=== PATIENT | female | born 1955 | race Two or more races ===

== ENCOUNTER 2025-01-05 06:11 | Inpatient (IN) | payer BC, MEDICARE ==
[~2025-01-05] VITALS: Ht 154.9 cm; Wt 91.3 kg
[~2025-01-05 06:11] MED LIST: AML5T PO; ASPI81CH59 PO; CHOL20007 PO; CLON0.2T TOP; DOCU-94 PO; FENO145T27 PO; LOSA100T14 PO; MAGN1CAP2 PO; METO-289 PO; PERCOT PO; TIZA4CAP PO; TURM1TAB PO
--- NOTE | 2025-01-05 07:18 | DVHHP2 ---
History Allergies: Coded Allergies: Codeine (Unverified Adverse Reaction, Unknown, depression , 01/01/25) Chief Complaint: Low back pain with radiation and shooting pain down the legs left greater than right Present Illness(Onset/Duration Patient has low back pain for several years impacting her activities of daily living ability to stand sit or walk for any extended period of time. Noncontributory Past Surgical History: Other (Knee replacement) Exam Exam General Appearance: Normal, Obese HEENT: Normal ENT Inspection Neck: None, Non-Tender, Normal, Normal Inspection Respiratory: No Accessory Muscle Use, None, No Respiratory Distress Cardiovascular: No Edema, No JVD, Other (Skin is pink warm and dry) Gastrointestinal: Other (No complaints of nausea vomiting or diarrhea) Extremities: Normal capillary refill, Normal inspection, Normal range of motion, Non-tender, Other (Leg pain originating from the low back) Neurologic: Alert, No Motor Deficits, Normal Affect, Normal Mood Cerebellar Function: Normal Reflexes: Normal Skin: Normal Color Plan Additional comments: Patient arrives today for elective spine surgery with Dr Cosme Varela lumbar 3- 5 posterior spinal decompression and fusion with lumbar 3-4, 4-5 interbody with peek cage and instrumentation Patient is agreeable to receive blood and emergency basis if she needs it The risks/benefits/alternatives of surgery were explained to the patient in detail including but not limited to , stroke, paralysis, myocardial infarction, bleeding, infection, complications of anesthesia (dry mouth, sore throat, dental damage, respiratory depression, blindness), postoperative infection, incomplete relief of symptoms, recurrence of symptoms, damage to blood vessels, nerves and tendons, pulmonary embolism and possible need for repeat surgery in the future. Pain, damage to surrounding soft tissue structures, need for reoperation or future surgery, persistent pain/disability/deformity, bone graft collapse or extrusion of interbody device, instrumentation failure, need for instrumentation removal, dural tear, temporary or permanent nerve root damage, deep vein thrombosis, pulmonary embolism, were described to the patient in detail and the patient wishes to proceed. No guarantee of surgical outcome/improvement was implied. All of the questions were answered thoroughly and consents were obtained. Call with questions Benedicto Narvaez [facility] Orthopaedic Spine Surgery nurse practitioner For Dr Stefany Varela Patient was examined, chart reviewed, labs evaluated, and diagnostic studies and findings analyzed. Case was discussed with Dr. Cosme Varela who formulated the plan of care. This medical document was created using an electronic medical record system with [employer] computerized dictation system. Although this document has been carefully reviewed, there might still be some phonetic and typographical errors. These areas are purely typographical due to imperfections of the software programs, and do not reflect any compromise in the patient's medical care. TRISTEN NARVAEZ NP Jan 05, 2025 07:18
[2025-01-05] MEDS ORDERED: MIDAZOLAM HCL 2MG/2ML 2ml VIAL (1mg/ml) ONE (07:22)
[2025-01-05] MEDS ORDERED: fentaNYL CITRATE 100 MCG/2 ML VL ONE (07:22)
[2025-01-05] MEDS ORDERED: METOCLOPRAMIDE HCL 5MG/ml INJ 2ml VIAL ONE (07:22)
[2025-01-05] MEDS ORDERED: LIDOCAINE 1% INJ PF 5ML AMP ONE (07:22)
[2025-01-05] MEDS ORDERED: ONDANSETRON HCL 4 MG/2 ML VIAL ONE (07:22)
[2025-01-05] MEDS ORDERED: ROCURONIUM 10MG/ML 10ML VIAL IV ONE (07:23)
[2025-01-05] MEDS ORDERED: PROPOFOL 10 MG/ML 20 ML IV ONE ×4 (07:23→10:30)
[2025-01-05] MEDS ORDERED: fentaNYL CITRATE 5 ML ONE (08:44)
[2025-01-05] MEDS ORDERED: SUGAMMADEX 200mg/2ml Vial (100MG/ML) IV ONE (11:07)
[2025-01-05] MEDS ORDERED: HYDROmorphone HCL 2 MG/ML VL/or syr ONE (11:12)
--- NOTE | 2025-01-05 11:47 | DVHOP2 ---
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 These include but are not limited to complications of anesthesia, postoperative infection, incomplete relief of symptoms, recurrence of symptoms, damage to blood vessels, nerves and tendons, deep venous thrombosis, pulmonary embolism and possible need for repeat surgery in the future. Name of Procedure Performed see detailed note Procedure Details Procedure Details: Pre-op Diagnosis: Lumbar Degenerative Disk Disease and Lumbar Spinal Stenosis causing Incapacitating back pain, radiculopathy and progressive neurologic deficit Post-op Diagnosis: Lumbar Degenerative Disk Disease and Lumbar Spinal Stenosis causing Incapacitating back pain, radiculopathy and progressive neurologic deficit Procedure: Lumbar 5 laminectomy with Lumbar 5 foraminotomies and facetectomies to decompress central canal and Lumbar 5 nerve roots Lumbar 4 laminectomy with Lumbar 4 foraminotomies and facetectomies to decompress central canal and Lumbar 4 nerve roots Lumbar 3 laminectomy with Lumbar 3 foraminotomies and facetectomies to decompress central canal and Lumbar 4 nerve roots Lumbar 3 to 5 posterior spinal inter transverse fusion Lumbar 4 to 5 posterior spinal interbody fusion with PEEK cage Lumbar 3 to 5 posterior spinal instrumentation with pedicle screws Local Bone Autograft For Fusion Allograft Bone Substitute to augment Fusion Microscope For Microdissection Surgeon: Cosme Varela MD Assist: FACUNDO Lindquist Anesthesia: General Fluids and EBL: See anesthesia note Patient was seen in the Pre Anesthesia Care Unit (PACU) and the operative site was initialed by me. All questions were answered to the patients satisfaction and chart reviewed. The patient was taken to the operative room where pre-ope rative antibiotics were given 30 minutes prior to incision. General anesthesia was induced and neuro-monitoring leads placed. Tyler catheter was placed. The patient was turned prone onto the [facility] spinal table. While positioning, I made sure that the belly was free to allow proper expansion of the lungs. The hips were extended and all bony prominences padded. The shoulders were abducted 80 degree and the elbows flexed 100 degrees with no tension on the brachial plexus. I check the foot arterial pulses and they were palpable. The patient was prepped and draped and time out was taken at this time per usual protocol. At this time, the C-arm fluoroscope was brought in and was used to eddi the incision borders proximally and distally. Using a Number 10 Blade, an incision was made extending it proximally and distally per C arm eddi from the posterior spinous process of lumbar 4,5 down to the lumbo-dorsal fascia. All bleeding was controlled with electrocautery. Self-retaining retractors were placed. Electrocautery was then used to take down the lumbo-dorsal fascia, to free the muscle off the bone bilaterally. A Torin retractor was placed over the posterior spinous process proximally and a lateral C-arm fluoroscope image was taken to insure we were at the correct level. Next, using bovie electro cautery, The deep fascia laterally to the facet joints was removed to expose the transverse processes of lumbar 3, 4 and 5 while taking care to avoid injuring the facet capsule at the proximal end of the incision. Next, the microscope was bought in for visualization and using a Luxell rongeur, the posterior spinous process of lumbar 3 and 4 and 5 bone were removed and the bone was saved for use as local autograft. I used alternating Kerison 2 mm and 3 mm rongeurs to perform central laminectomies lumbar 5 and 4 and 3 to decompress the central canal. Next using alternating Kerison 2mm and 3 mm rongeurs, the superior articular facets of lumbar 3, 4 and 5 were removed bilaterally to decompress the lateral recess (facetectomies) and then extended proximally to decompress the foramen bilaterally (foraminotomies). I used a ball tipped nerve probed to insure that the respective nerve roots were able to be mobilized 5mm in each direction were unimpeded in the lateral recess and foramen. Next I carefully inspected the dura to make sure no durotomy was visible and it was not. I retracted the right lumbar 5 nerve medially and used increasing size jose alberto until the proper size prepared and then inserted a [id number] PEEK cage in to the disc space at L4/5 using C arm fluoroscopy. I covered the exposed dura with gelfoam soaked in thrombin and the microscope was wheeled away from the operative filed. The C-arm fluoroscope was brought in and perfect AP views of the lumbar 4 and 5 pedicles were obtained. I placed bilateral pedicle screws at these levels by: using a Lenke awl to make a marine pilot hole, then a ball tip robe to make sure there was no pedicle breach, then a tap to prepare the track and a 6.5 mm diameter 45 mm length pedicle screw was placed bilaterally. This step to place bilateral pedicle screws was repeated up to the lumbar 3, 4 and 5 level. Next, the c-arm fluoroscope took an AP and lateral x-ray to ensure proper placement of the pedicle screws. Next, the neuro-stimulation probe was placed over the tip of each screw and each screw stimulated only after a current greater than 10 mA was delivered to the screw. Next , I took a Midas Karl Drill to decorticate the transverse process which were exposed and local bone graft, Bacterin allograft bone substitute and Demineralized bone matrix were placed along the inter transverse process intervals bilaterally (the fusion bed). Next a curved mikey sized to fit the pedicle screw interval was placed and secured to each pedicle screw using set screws, The set screws were tightened using a torque screwdriver (set to 10 N*M torque) to secure the mikey to the pedicle screws bilaterally. Final AP and lateral C arm fluoroscopic films were taken at this time. Next a 10 [place] diameter Hemovac drain was laced deep to the lumbo- dorsal fascia. The lumbo-dorsal fascia was closed with interrupted 0-Vicryl sutures. The subcutaneous tissue was closed with interrupted 2-0 Vicryl sutures. The skin was closed with running 2-0 nylon suture. Sterile dressings were place. The pt. was turned supine onto the stretcher, extubated and taken to the recovery room in stable condition. [id number] Condition Stable Disposition Still a Patient COSME VARELA MD Jan 05, 2025 11:47
[2025-01-05 11:57] VITALS: PULSE 56; RESP 15; O2SAT 96
[2025-01-05] MEDS ORDERED: NITROGLYCERIN 0.4 MG SL TAB SL PRN (12:00)
[2025-01-05] MEDS ORDERED: MORPHINE SULFATE INJ 2 MG/ml SYRG IV PRN (12:00)
[2025-01-05] MEDS ORDERED: ACETAMINOPHEN 325 MG TAB PO PRN (12:00)
[2025-01-05] MEDS ORDERED: hydrALAZINE HCL 20 MG/ML VL IV PRN (12:15)
[2025-01-05] MEDS: ACETAMINOPHEN IV 1000 MG/100ML (10MG/ML) IV ONE (12:26)
[2025-01-05] MEDS: HYDROmorphone HCL 2 MG/ML VL/or syr IV PRN (12:47)
[2025-01-05] MEDS: CYCLOBENZAPRINE HCL 10 MG TAB PO SCH (13:18)
[2025-01-05 14:58] VITALS: BP 146/88; PULSE 86; RESP 19; TEMP 97.9; O2SAT 94
[2025-01-05] MEDS: ceFAZolin 1GM/50ML 50 ML IV SCH (16:07)
[2025-01-05] MEDS: MORPHINE SULFATE INJ 2 MG/ml SYRG IV PRN (16:09)
[2025-01-05] MEDS: TRANEXAMIC ACID 20 ML ONE (16:12)
[2025-01-05] MEDS: ONDANSETRON HCL 4 MG/2 ML VIAL IV ONE (16:12)
[2025-01-05] MEDS: LIDOCAINE W/ EPINEPHRINE 1% 20ML VIAL ONE (16:12)
[2025-01-05] MEDS: ceFAZolin 2 GM/D5W50ml 50 ML IV ONE (16:12)
[2025-01-05] MEDS: D5W/SOD CHLO 0.9% 1,000 ML IV SCH (16:23)
[2025-01-05 16:30] VITALS: BP 146/88; PULSE 86; RESP 19; TEMP 97.9; O2SAT 94
[2025-01-05 17:36] VITALS: PULSE 89
[2025-01-05 20:00] VITALS: PULSE 57
[2025-01-05] MEDS: HYDROcodone-ACET 10/325MG TAB PO PRN (20:43)
[2025-01-05] MEDS: DOCUSATE SOD 100 MG CAP PO SCH (20:43)
[2025-01-05 21:00] VITALS: BP 109/61; PULSE 68; RESP 18; TEMP 98; O2SAT 97
[2025-01-06] VITALS (8 sets, daily range): BP systolic 104–146; BP diastolic 41–76; PULSE 20–90; RESP 16–18; TEMP 97–97.8; O2SAT 99–100
[2025-01-06] MEDS: METOPROLOL SUCCINATE XL 50 MG TAB PO SCH (08:32)
[2025-01-06] MEDS: LOSARTAN POTASSIUM 50 MG TAB PO SCH (08:32)
[2025-01-06] MEDS ORDERED: LOSARTAN POTASSIUM PO SCH (10:00)
--- NOTE | 2025-01-06 14:08 | DVHPN2 ---
Progress Note - Surgical Date Seen: Jan 06, 2025 Post op day Post op day: 1 Subjective Patient reports: No new complaints, Feels better (Intermittent improvement in preoperative symptoms, patient experiencing expected postoperative pain to the back) Review of Systems: HEENT:Normal, CVS:Normal, RESPIRATORY:Normal, GI:Normal, :Normal, MSK:Normal, NEURO:Abnormal (Intermittent pain down legs) Objective Vital signs Vital Sign Date Time Temp Pulse Resp B/P (MAP) Pulse Ox O2 Delivery O2 Flow Rate FiO2 01/06/25 13:32 61 16 111/67 01/06/25 13:06 97.3 100 97.3 01/06/25 08:00 Nasal Cannula* 2 28 Total Intake and Output 01/05/25 01/05/25 01/06/25 15:00 23:00 07:00 Intake Total 50 ml 250 ml Output Total 1 ml Balance -1 ml 50 ml 250 ml Medications Current Medications Medications Dose Ordered Sig/Olesya Route Start Time Stop Time Status Last Admin Dose Admin Dextrose/Sodium Chloride 1,000 ml @ 100 mls/hr Q10H IV 01/05/25 12:00 01/06/25 08:33 100 MLS/HR Ondansetron HCl 4 mg Q4HP PRN IV 01/05/25 12:00 Acetaminophen 650 mg Q6HP PRN PO 01/05/25 12:00 Acetaminophen/ Hydrocodone Bitart 1 tab Q6HP PRN PO 01/05/25 12:00 01/06/25 08:33 1 TAB Morphine Sulfate 1 mg Q4HP PRN IV 01/05/25 12:00 01/06/25 13:32 1 MG Cyclobenzaprine HCl 10 mg TID PO 01/05/25 14:00 01/06/25 13:31 10 MG Docusate Sodium 100 mg BID PO 01/05/25 22:00 01/06/25 08:32 100 MG Cefazolin Sodium 50 ml @ 100 mls/hr Q8HR IV 01/05/25 14:00 01/07/25 06:29 01/06/25 13:31 100 MLS/HR Nitroglycerin 0.4 mg Q5MINP PRN SL 01/05/25 12:00 Morphine Sulfate 2 mg Q30M PRN IV 01/05/25 12:00 Amlodipine Besylate 10 mg DAILY PO 01/06/25 10:00 01/06/25 08:33 10 MG Metoprolol Succinate 100 mg DAILY PO 01/06/25 10:00 01/06/25 08:32 100 MG Patient Own Medication 300 mg DAILY PO 01/06/25 10:00 UNV Losartan Potassium 100 mg DAILY PO 01/06/25 10:00 01/06/25 08:32 100 MG Examination: GENERAL:Normal, HEENT:Normal, NECK:Normal, LUNGS:Normal, CVS:Normal, ABDOMEN:Normal, MSK:Normal (Patient to get up and walk with physical therapy the length of the room pain.), SKIN:Normal (Drains intact x2 huang dressing intact.), NEURO:Normal (Intermittent improvement of her preoperative symptoms), :Normal Problem List/Assessment/Plan Problems: (1) Muscle spasm of back (2) Acute post-operative pain Assessment and Plan POD # 1 Events of the day Patient has ambulated a short distance with physical therapy Drain output for 1. In the past 24 hours is 140 mL Drain 2. Output for the past 24 hours is 70 mL Huang dressing is intact functioning well Patient is experiencing expected postoperative pain she is also experiencing tension to her right hip and thigh. This can be a normal finding postoperative. Weakness Patient is progressing as expected, encouraging patient to sit up while awake, use her incentive spirometer while awake. -Disposition: -Pending -Discharge RX: Pending -Follow up appointment: with Dr Varela on scheduled postoperative date [phone] [id number] [facility] [address] [place] [id number] -Pain: - IV pain meds post op day 1, with PO supplementation, goal is to progress weaning off IV medications and control pain with PO only. morphine- for breakthrough pain (PAIN 7-10) - P.O. analgesics:Tylenol 650MG (PAIN 1-3) Cummaquid 10/325 mg (PAIN 4-6) - Muscle relaxers scheduled administration. This is a beneficial medications for the incisional pain as it is mostly related to muscle spasms. Flexeril 10 mg TID - Cepacol throat lozenges as needed for sore throat -Antibiotics Operative recommendations: -Postoperative dose:-Post operative antibiotics cefazolin 1 g IV piggyback every 8 hours x 48 hours total of 6 doses -DVT PPX: -Hold all chemical DVT/ blood thinners for 14 days postoperatively -use mechanical DVT PPX such as SCD's, ambulation -Activity: -continue PT treatment and monitor patients progression -Sit at side of bed for meals -Goal: Ambulate independently and safely (may use assistive devices if needed) -Medical Therapy goals: -Afebrile- Patient may develop a expected post operative fever by day 2-3, this may not be accompanied with a elevation in WBC. if fever develops: Acetaminophen for fever. Albuterol nebulizer Tx every 12 hours for 24 hours to facilitate adequate lung expansion and prevent development of atelectasis. -Euglycemic: bloods sugars under 130mmol/L for optimal healing -Normotensive: Avoid events of hypertension. This helps to keep post operative healing intact and avoids destabilization of beneficial hemostatic coagulation. -Lumbar: -If patient is comfortable encouraged the patient to lay on their side to facilitate wound healing -Drains: -Hemovac drains: These will be to full compression unless otherwise ordered. Please record and document output AND characteristic of fluid present independently EVERY 6 hours more often as needed. if there in no output indicate this by documenting 0ml. If output is greater than 100 ml in one hour of bebe blood call provider. These drains will be removed once the drainage is at a acceptable level (generally less than 100ml in 24 hours) -Huang dressing: This will stay in place and will be removed at the patients follow up visit. Nursing is to assess the seal and power source. The seal should be intact and the power source should have a green flashing light indicating it is functioning well. Batteries can last up to 14 days. If a leak develops the dressing edges can be reinforced with a Tegaderm dressing to reestablish intact seal. The Huang dressing is NOT a wound vac. This does not get changed, it does not need home health management. -Record output independently, drain 1. Is a deep drain and drain 2. Is a superficial drain. Wound drainage is described by type, color, amount, and odor. Drainage can be 1 Serous: Clear and thin, may be present in healing healthy wound. 2 Serosanguineous containing blood may also be present and healthy healing wound 3. Sanguinous primarily blood 4. Purulent this is thick, white, and pus like. It may be indicated to give of a infection and should constitute a call to the provider immediately with the plan that the sample should be cultured. -Tyler: discontinued in OR -Dressings Take care not to disrupt the HUANG dressing seal. If there is a break in the seal it can be trouble shot with a Tegaderm dressing. -Dressing to Hemovac drains may be changed once the drains have been removed by the provider. -Bowel management: -Colace 100mg bid -Diet: -Clear liquid diet and advance as patient tolerates within dietary limitations ( example: diabetic, Cardiac) -Incentive Spirometer: -10 x hour while awake, RN please educate and observe repeat demonstration, have IS at bedside POD #1 -X-rays: - none indicated at this time -Consults: -Physical Therapy evaluation, treatment recommendations, and discharge antonio mmendations Call with questions Benedicto Stacy ACNP- Orthopaedic Spine Surgery nurse practitioner For Dr Stefany Varela Patient was examined, chart reviewed, labs evaluated, and diagnostic studies and findings analyzed. Case was discussed with Dr. Cosme Varela who formulated the plan of care. This medical document was created using an electronic medical record system with [employer] dictation system. Although this document has been carefully reviewed, there might still be some phonetic and typographical errors. These areas are purely typographical due to imperfections of the software programs, and do not reflect any compromise in the patient's medical care. Plan discussed with Plan discussed with: Patient, Other (RAWYA extension [id number]) Visit Coding Surgery Date of Service if different f: Jan 05, 2025 Billing Provider: TRISTEN STACY NP Surgery Visit Codes: NOT BILLABLE TRISTEN STACY NP Jan 06, 2025 14:08
--- NOTE | 2025-01-06 17:24 | DVHINCON2 ---
Date Seen: Jan 06, 2025 Referring Physician Spine surgery. Reason for Consultation Medical management. History of Present Illness 69-year-old female with a known history of hypertension, dyslipidemia chronic back pain initially presented to the hospital for elective procedure for lumbar spine surgery. Patient is status post L3-4 five lumbar spine surgery. Patient is currently complaining of 9/10 pain in the lower back. Denies any chest pain shortness of breath fevers chills nausea vomiting diarrhea hematemesis hematochezia melena dysuria hematuria. Past Surgical History Status post lumbar spine surgery. Bilateral partial knee replacement Hip replacement Family History: Patient reports no known family medical history. Allergies: Coded Allergies: Codeine (Unverified Adverse Reaction, Unknown, depression , 01/01/25) Home Meds Reported Medications Curcuma Longa (Turmeric) Extra (Turmeric) 500 Mg Tab, 1000 MG PO DAILY, TAB 01/01/25 Cholecalciferol (VITAMIN D3) 2,000 Unit Tab, 1 TAB PO DAILY, #90 TAB 3 Refills 01/01/25 Magnesium Citrate (mg Suppleme (Magnesium Citrate) 125 Mg Cap, 250 MG PO DAILY, CAP 01/01/25 Aspirin (Aspirin Low Dose) 81 Mg Chw, 1 TAB PO DAILY, #90 TAB 3 Refills 01/01/25 Tizanidine Hydrochloride (Zanaflex) 4 Mg Cap, 1 CAP PO TID, #90 CAP 01/01/25 Oxycodone W/ Acetaminophen (Percocet 5/325MG) 1 Tab Tb, 1 TAB PO PRN, #90 TAB 01/01/25 Docusate Sodium (Colace) 100 Mg Cap, 1 CAP PO BID, #60 CAP 01/01/25 Amlodipine Besylate (NORVASC TABLET) 5 Mg Tb, 10 MG PO DAILY, TAB 01/01/25 Fenofibrate (FENOFIBRATE) 145 Mg Tab, 1 TAB PO DAILY, #90 TAB 3 Refills 01/01/25 Metoprolol Succinate (Metoprolol Succinate Er) 50 Mg Tab, 2 TAB PO DAILY, #90 TAB 3 Refills 01/01/25 Clonidine Hydrochloride (Clonidine Hcl) 0.2 Mg Tab, 0.3 MG TOP DAILY, TAB 01/01/25 Losartan Potassium (Cozaar) 100 Mg Tab, 300 MG PO DAILY, TAB 01/01/25 Current Medications Current Medications Medications (Trade) Dose Ordered Sig/Olesya Route PRN Reason Start Time Stop Time Status Last Admin Docusate Sodium (Colace Capsule) 100 mg BID PO 01/05/25 22:00 01/06/25 08:32 Amlodipine Besylate (Norvasc Tablet) 10 mg DAILY PO 01/06/25 10:00 01/06/25 08:33 Metoprolol Succinate (Toprol Xl) 100 mg DAILY PO 01/06/25 10:00 01/06/25 08:32 Patient Own Medication 300 mg DAILY PO 01/06/25 10:00 UNV Losartan Potassium (Cozaar Tablet) 100 mg DAILY PO 01/06/25 10:00 01/06/25 08:32 Review of Systems 12 review of system are negative besides mentioned above. Vital Signs Vital Signs Date Time Temp Pulse Resp B/P (MAP) Pulse Ox O2 Delivery O2 Flow Rate FiO2 01/06/25 14:02 67 18 112/69 01/06/25 13:06 97.3 100 97.3 01/06/25 08:00 Nasal Cannula* 2 28 Physical Exam HEENT pupils are reactive Neck is supple CV is S1-S2 regular rate and rhythm Respiratory diminished breath sounds bases GI positive bowel sound Extremity no edema COOK SHORT ORDER no motor deficit Assessment 69-year-old female with a known history of hypertension, dyslipidemia, chronic back pain is here for elective surgery 1. Hypertension controlled 2. Hypertriglyceridemia 3. Acute on chronic back pain status post L3-4 five lumbar spine surgery -pain meds as needed, PT evaluation and treatment follow up spine surgery recommendations. -resume home medications Plan discussed with: Patient Date of Service: Jan 06, 2025 Billing Provider: ALEXIS AMBRIZ MD Common Visit Codes: NOT BILLABLE ALEXIS AMBRIZ MD Jan 06, 2025 17:24
[2025-01-07] VITALS (8 sets, daily range): BP systolic 93–138; BP diastolic 42–75; PULSE 64–80; RESP 16–18; TEMP 97.1–97.9; O2SAT 98–100
--- NOTE | 2025-01-07 07:03 | DVHPN2 ---
Progress Note - Surgical Date Seen: Jan 07, 2025 Post op day Post op day: 2 Subjective Patient reports: No new complaints, Feels better (intermittent pains continues, some improvment) Review of Systems: HEENT:Normal, CVS:Normal, RESPIRATORY:Normal, GI:Normal, G U:Normal, MSK:Normal, NEURO:Normal Objective Vital signs Vital Sign Date Time Temp Pulse Resp B/P (MAP) Pulse Ox O2 Delivery O2 Flow Rate FiO2 01/07/25 05:00 97.7 64 18 110/60 (77) 98 97.7 01/06/25 20:00 Nasal Cannula* 2 28 Total Intake and Output 01/06/25 01/06/25 01/07/25 15:00 23:00 07:00 Intake Total 50 ml 200 ml 560 ml Balance 50 ml 200 ml 560 ml Medications Current Medications Medications Dose Ordered Sig/Olesya Route Start Time Stop Time Status Last Admin Dose Admin Dextrose/Sodium Chloride 1,000 ml @ 100 mls/hr Q10H IV 01/05/25 12:00 01/07/25 02:43 100 MLS/HR Ondansetron HCl 4 mg Q4HP PRN IV 01/05/25 12:00 Acetaminophen 650 mg Q6HP PRN PO 01/05/25 12:00 Acetaminophen/ Hydrocodone Bitart 1 tab Q6HP PRN PO 01/05/25 12:00 01/07/25 02:18 1 TAB Morphine Sulfate 1 mg Q4HP PRN IV 01/05/25 12:00 01/07/25 00:08 1 MG Cyclobenzaprine HCl 10 mg TID PO 01/05/25 14:00 01/06/25 21:42 10 MG Docusate Sodium 100 mg BID PO 01/05/25 22:00 01/06/25 21:42 100 MG Nitroglycerin 0.4 mg Q5MINP PRN SL 01/05/25 12:00 Morphine Sulfate 2 mg Q30M PRN IV 01/05/25 12:00 Amlodipine Besylate 10 mg DAILY PO 01/06/25 10:00 01/06/25 08:33 10 MG Metoprolol Succinate 100 mg DAILY PO 01/06/25 10:00 01/06/25 08:32 100 MG Patient Own Medication 300 mg DAILY PO 01/06/25 10:00 UNV Losartan Potassium 100 mg DAILY PO 01/06/25 10:00 01/06/25 08:32 100 MG Examination: GENERAL:Normal, HEENT:Normal, NECK:Normal, LUNGS:Normal, CVS:Normal, ABDOMEN:Normal, MSK:Normal, SKIN:Normal (drain 3 1 will remain drain #2 removed, only 25 ml out HUANG imtact), NEURO:Normal, :Normal Problem List/Assessment/Plan Problems: (1) Muscle spasm of back (2) Acute post-operative pain Assessment and Plan POD # 2 Events of the day encouragept to work with e with physical therapy Drain output for 1. In the past 24 hours is mL Drain 2. Output for the past 24 hours is 25 mL, drain removed Huang dressing is intact functioning well Patient is experiencing expected postoperative pain she is also experiencing tension to her right hip and thigh. This can be a normal finding postoperative. Patient is progressing as expected, encouraging patient to sit up while awake, use her incentive spirometer while awake. -Disposition: -Pending -Discharge RX: Pending -Follow up appointment: with Dr Varela on scheduled postoperative date [phone] [id number] [facility] [address] [place] [id number] -Pain: - IV pain meds post op day 1, with PO supplementation, goal is to progress weaning off IV medications and control pain with PO only. morphine- for breakthrough pain (PAIN 7-10) - P.O. analgesics:Tylenol 650MG (PAIN 1-3) [place] 10/325 mg (PAIN 4-6) - Muscle relaxers scheduled administration. This is a beneficial medications for the incisional pain as it is mostly related to muscle spasms. Flexeril 10 mg TID - Cepacol throat lozenges as needed for sore throat -Antibiotics Operative recommendations: -Postoperative dose:-Post operative antibiotics cefazolin 1 g IV piggyback every 8 hours x 48 hours total of 6 doses -DVT PPX: -Hold all chemical DVT/ blood thinners for 14 days postoperatively -use mechanical DVT PPX such as SCD's, ambulation -Activity: -continue PT treatment and monitor patients progression -Sit at side of bed for meals -Goal: Ambulate independently and safely (may use assistive devices if needed) -Medical Therapy goals: -Afebrile- Patient may develop a expected post operative fever by day 2-3, this may not be accompanied with a elevation in WBC. if fever develops: Acetaminophen for fever. Albuterol nebulizer Tx every 12 hours for 24 hours to facilitate adequate lung expansion and prevent development of atelectasis. -Euglycemic: bloods sugars under 130mmol/L for optimal healing -Normotensive: Avoid events of hypertension. This helps to keep post operative healing intact and avoids destabilization of beneficial hemostatic coagulation. -Lumbar: -If patient is comfortable encouraged the patient to lay on their side to facilitate wound healing -Drains: -Hemovac drains: These will be to full compression unless otherwise ordered. Please record and document output AND characteristic of fluid present independently EVERY 6 hours more often as needed. if there in no output indicate this by documenting 0ml. If output is greater than 100 ml in one hour of bebe blood call provider. These drains will be removed once the drainage is at a acceptable level (generally less than 100ml in 24 hours) -Huang dressing: This will stay in place and will be removed at the patients follow up visit. Nursing is to assess the seal and power source. The seal should be intact and the power source should have a green flashing light indicating it is functioning well. Batteries can last up to 14 days. If a leak develops the dressing edges can be reinforced with a Tegaderm dressing to reestablish intact seal. The Huang dressing is NOT a wound vac. This does not get changed, it does not need home health management. -Record output independently, drain 1. Is a deep drain and drain 2. Is a superficial drain. Wound drainage is described by type, color, amount, and odor. Drainage can be 1 Serous: Clear and thin, may be present in healing healthy wound. 2 Serosanguineous containing blood may also be present and healthy healing wound 3. Sanguinous primarily blood 4. Purulent this is thick, white, and pus like. It may be indicated to give of a infection and should constitute a call to the provider immediately with the plan that the sample should be cultured. -Tyler: discontinued in OR -Dressings Take care not to disrupt the HUANG dressing seal. If there is a break in the seal it can be trouble shot with a Tegaderm dressing. -Dressing to Hemovac drains may be changed once the drains have been removed by the provider. -Bowel management: -Colace 100mg bid -Diet: -Clear liquid diet and advance as patient tolerates within dietary limitations ( example: diabetic, Cardiac) -Incentive Spirometer: -10 x hour while awake, RN please educate and observe repeat demonstration, have IS at bedside POD #1 -X-rays: - none indicated at this time -Consults: -Physical Therapy evaluation, treatment recommendations, and discharge recommendations Call with questions Benedicto Stacy ACNP- Orthopaedic Spine Surgery nurse practitioner For Dr Stefany Varela Patient was examined, chart reviewed, labs evaluated, and diagnostic studies and findings analyzed. Case was discussed with Dr. Cosme Varela who formulated the plan of care. This medical document was created using an electronic medical record system with [employer] dictation system. Although this document has been carefully reviewed, there might still be some phonetic and typographical errors. These areas are purely typographical due to imperfections of the software programs, and do not reflect any compromise in the patient's medical care. Plan discussed with Plan discussed with: Patient, Other (Kaylene GRACIA) Visit Coding Surgery Date of Service if different f: Jan 05, 2025 Billing Provider: TRISTEN STACY NP Surgery Visit Codes: NOT BILLABLE TRISTEN STACY NP Jan 07, 2025 07:03
--- NOTE | 2025-01-07 17:57 | DVHPN2 ---
Subjective Overnight events noted. Patient complaining of minimal pain. 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 Medications Current Medications Medications Dose Ordered Sig/Olesya Route Start Time Stop Time Status Last Admin Dose Admin Dextrose/Sodium Chloride 1,000 ml @ 100 mls/hr Q10H IV 01/05/25 12:00 01/07/25 02:43 100 MLS/HR Ondansetron HCl 4 mg Q4HP PRN IV 01/05/25 12:00 Acetaminophen 650 mg Q6HP PRN PO 01/05/25 12:00 Acetaminophen/ Hydrocodone Bitart 1 tab Q6HP PRN PO 01/05/25 12:00 01/07/25 17:42 1 TAB Morphine Sulfate 1 mg Q4HP PRN IV 01/05/25 12:00 01/07/25 14:30 1 MG Cyclobenzaprine HCl 10 mg TID PO 01/05/25 14:00 01/07/25 14:28 10 MG Docusate Sodium 100 mg BID PO 01/05/25 22:00 01/07/25 09:18 100 MG Nitroglycerin 0.4 mg Q5MINP PRN SL 01/05/25 12:00 Morphine Sulfate 2 mg Q30M PRN IV 01/05/25 12:00 Amlodipine Besylate 10 mg DAILY PO 01/06/25 10:00 01/07/25 10:14 10 MG Metoprolol Succinate 100 mg DAILY PO 01/06/25 10:00 01/07/25 10:14 100 MG Patient Own Medication 300 mg DAILY PO 01/06/25 10:00 UNV Losartan Potassium 100 mg DAILY PO 01/06/25 10:00 01/07/25 10:14 100 MG Assessment/Plan Assessment/Plan 69-year-old female with a known history of hypertension, dyslipidemia, chronic back pain is here for elective surgery 1. Hypertension controlled 2. Hypertriglyceridemia 3. Acute on chronic back pain status post L3-4 five lumbar spine surgery -continue pain meds as needed, PT evaluation and treatment, discharge plan per spine surgery. Plan discussed with: Patient Date of Service: Jan 07, 2025 Billing Provider: ALEXIS AMBRIZ MD Common Visit Codes: NOT BILLABLE ALEXIS AMBRIZ MD Jan 07, 2025 17:57
[2025-01-08] VITALS (8 sets, daily range): BP systolic 105–146; BP diastolic 67–85; PULSE 75–100; RESP 16–20; TEMP 97.7–99; O2SAT 97–100
--- NOTE | 2025-01-08 11:44 | DVHPN2 ---
Progress Note - Surgical Date Seen: Jan 08, 2025 Post op day Post op day: 3 Subjective Patient reports: No new complaints, Feels better Review of Systems: HEENT:Normal, CVS:Normal, RESPIRATORY:Normal, GI:Normal, :Normal, MSK:Normal (improving strength with pt), NEURO:Normal (pre op symp improving) Objective Vital signs Vital Sign Date Time Temp Pulse Resp B/P (MAP) Pulse Ox O2 Delivery O2 Flow Rate FiO2 01/08/25 09:42 145/74 01/08/25 09:40 94 01/08/25 08:50 97.8 18 97 97.8 01/08/25 08:03 Nasal Cannula* 2 28 Total Intake and Output 01/07/25 01/07/25 01/08/25 15:00 23:00 07:00 Intake Total 750 ml 420 ml 623 ml Output Total 75 ml Balance 750 ml 345 ml 623 ml Medications Current Medications Medications Dose Ordered Sig/Olesya Route Start Time Stop Time Status Last Admin Dose Admin Dextrose/Sodium Chloride 1,000 ml @ 100 mls/hr Q10H IV 01/05/25 12:00 01/08/25 09:44 100 MLS/HR Ondansetron HCl 4 mg Q4HP PRN IV 01/05/25 12:00 Acetaminophen 650 mg Q6HP PRN PO 01/05/25 12:00 Acetaminophen/ Hydrocodone Bitart 1 tab Q6HP PRN PO 01/05/25 12:00 01/08/25 09:43 1 TAB Morphine Sulfate 1 mg Q4HP PRN IV 01/05/25 12:00 01/08/25 06:52 1 MG Cyclobenzaprine HCl 10 mg TID PO 01/05/25 14:00 01/08/25 06:53 10 MG Docusate Sodium 100 mg BID PO 01/05/25 22:00 01/08/25 09:41 100 MG Nitroglycerin 0.4 mg Q5MINP PRN SL 01/05/25 12:00 Morphine Sulfate 2 mg Q30M PRN IV 01/05/25 12:00 Amlodipine Besylate 10 mg DAILY PO 01/06/25 10:00 01/08/25 09:42 10 MG Metoprolol Succinate 100 mg DAILY PO 01/06/25 10:00 01/08/25 09:40 100 MG Patient Own Medication 300 mg DAILY PO 01/06/25 10:00 UNV Losartan Potassium 100 mg DAILY PO 01/06/25 10:00 01/08/25 09:41 100 MG Examination: GENERAL:Normal, HEENT:Normal, NECK:Normal, LUNGS:Normal, CVS:Normal, ABDOMEN:Normal, MSK:Normal (improved ambulation with PT), SKIN:Normal (huang intact, drain #1 ), NEURO:Normal (improving ) Problem List/Assessment/Plan Problems: (1) Acute post-operative pain (2) Muscle spasm of back Assessment and Plan POD # 3 Events of the day encourage pt to work with physical therapy last ambulated 50 feet Drain output for 1. In the past 24 hours is questionable- minimal documentation will keep drain for another day Huang dressing is intact functioning well Patient is experiencing expected postoperative pain she is also experiencing tension to her right hip and thigh. This can be a normal finding postoperative. Patient is progressing as expected, encouraging patient to sit up while awake, use her incentive spirometer while awake. -Disposition: -Pending -Discharge RX: Pending -Follow up appointment: with Dr Varela on scheduled postoperative date [phone] [id number] [facility] [address] [place] [address] -Pain: - IV pain meds post op day 1, with PO supplementation, goal is to progress weaning off IV medications and control pain with PO only. morphine- for breakthrough pain (PAIN 7-10) - P.O. analgesics:Tylenol 650MG (PAIN 1-3) [place] 10/325 mg (PAIN 4-6) - Muscle relaxers scheduled administration. This is a beneficial medications for the incisional pain as it is mostly related to muscle spasms. Flexeril 10 mg TID - Cepacol throat lozenges as needed for sore throat -Antibiotics Operative recommendations: -Postoperative dose:-Post operative antibiotics cefazolin 1 g IV piggyback every 8 hours x 48 hours total of 6 doses -DVT PPX: -Hold all chemical DVT/ blood thinners for 14 days postoperatively -use mechanical DVT PPX such as SCD's, ambulation -Activity: -continue PT treatment and monitor patients progression -Sit at side of bed for meals -Goal: Ambulate independently and safely (may use assistive devices if needed) -Medical Therapy goals: -Afebrile- Patient may develop a expected post operative fever by day 2-3, this may not be accompanied with a elevation in WBC. if fever develops: Acetaminophen for fever. Albuterol nebulizer Tx every 12 hours for 24 hours to facilitate adequate lung expansion and prevent development of atelectasis. -Euglycemic: bloods sugars under 130mmol/L for optimal healing -Normotensive: Avoid events of hypertension. This helps to keep post operative healing intact and avoids destabilization of beneficial hemostatic coagulation. -Lumbar: -If patient is comfortable encouraged the patient to lay on their side to facilitate wound healing -Drains: -Hemovac drains: These will be to full compression unless otherwise ordered. Please record and document output AND characteristic of fluid present independently EVERY 6 hours more often as needed. if there in no output indicate this by documenting 0ml. If output is greater than 100 ml in one hour of bebe blood call provider. These drains will be removed once the drainage is at a acceptable level (generally less than 100ml in 24 hours) -Huang dressing: This will stay in place and will be removed at the patients follow up visit. Nursing is to assess the seal and power source. The seal should be intact and the power source should have a green flashing light indicating it is functioning well. Batteries can last up to 14 days. If a leak develops the dressing edges can be reinforced with a Tegaderm dressing to reestablish intact seal. The Huang dressing is NOT a wound vac. This does not get changed, it does not need home health management. -Record output independently, drain 1. Is a deep drain and drain 2. Is a superficial drain. Wound drainage is described by type, color, amount, and odor. Drainage can be 1 Serous: Clear and thin, may be present in healing healthy wound. 2 Serosanguineous containing blood may also be present and healthy healing wound 3. Sanguinous primarily blood 4. Purulent this is thick, white, and pus like. It may be indicated to give of a infection and should constitute a call to the provider immediately with the pl an that the sample should be cultured. -Tyler: discontinued in OR -Dressings Take care not to disrupt the HUANG dressing seal. If there is a break in the seal it can be trouble shot with a Tegaderm dressing. -Dressing to Hemovac drains may be changed once the drains have been removed by the provider. -Bowel management: -Colace 100mg bid -Diet: -Clear liquid diet and advance as patient tolerates within dietary limitations ( example: diabetic, Cardiac) -Incentive Spirometer: -10 x hour while awake, RN please educate and observe repeat demonstration, have IS at bedside POD #1 -X-rays: - none indicated at this time -Consults: -Physical Therapy evaluation, treatment recommendations, and discharge recommendations Call with questions Benedicto Narvaez ACNP- Orthopaedic Spine Surgery nurse practitioner For Dr Stefany Varela Patient was examined, chart reviewed, labs evaluated, and diagnostic studies and findings analyzed. Case was discussed with Dr. Cosme Varela who formulated the plan of care. This medical document was created using an electronic medical record system with [employer] dictation system. Although this document has been carefully reviewed, there might still be some phonetic and typographical errors. These areas are purely typographical due to imperfections of the software programs, and do not reflect any compromise in the patient's medical care. My Orders My Orders up to side of bed for all meals Place SCD while in bed Lidocaine patches for shoulders and neck pain BID Plan discussed with Plan discussed with: Patient, Other (Kaylene RN x [phone]) Visit Coding Surgery Date of Service if different f: Jan 05, 2025 Billing Provider: TRISTEN NARVAEZ NP Surgery Visit Codes: NOT BILLABLE TRISTEN NARVAEZ NP Jan 08, 2025 11:44
[2025-01-08] MEDS: LIDOCAINE 5% TOPICAL PATCH TOP SCH (13:05)
--- NOTE | 2025-01-08 14:47 | DVH ---
FLUOROSCOPY TIME: 91 seconds TECHNIQUE: Intraoperative radiographs of the lumbar spine were obtained. COMPARISON: None FINDINGS: Refer to intraoperative report for further evaluation. IMPRESSION: Refer to intraoperative report for further evaluation.
--- NOTE | 2025-01-08 17:16 | DVHPN2 ---
Subjective Overnight events noted. Patient is feeling much better. 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 Medications Current Medications Medications Dose Ordered Sig/Olesya Route Start Time Stop Time Status Last Admin Dose Admin Dextrose/Sodium Chloride 1,000 ml @ 100 mls/hr Q10H IV 01/05/25 12:00 01/08/25 09:44 100 MLS/HR Ondansetron HCl 4 mg Q4HP PRN IV 01/05/25 12:00 Acetaminophen 650 mg Q6HP PRN PO 01/05/25 12:00 Acetaminophen/ Hydrocodone Bitart 1 tab Q6HP PRN PO 01/05/25 12:00 01/08/25 09:43 1 TAB Morphine Sulfate 1 mg Q4HP PRN IV 01/05/25 12:00 01/08/25 14:01 1 MG Cyclobenzaprine HCl 10 mg TID PO 01/05/25 14:00 01/08/25 13:04 10 MG Docusate Sodium 100 mg BID PO 01/05/25 22:00 01/08/25 09:41 100 MG Nitroglycerin 0.4 mg Q5MINP PRN SL 01/05/25 12:00 Morphine Sulfate 2 mg Q30M PRN IV 01/05/25 12:00 Amlodipine Besylate 10 mg DAILY PO 01/06/25 10:00 01/08/25 09:42 10 MG Metoprolol Succinate 100 mg DAILY PO 01/06/25 10:00 01/08/25 09:40 100 MG Patient Own Medication 300 mg DAILY PO 01/06/25 10:00 UNV Losartan Potassium 100 mg DAILY PO 01/06/25 10:00 01/08/25 09:41 100 MG Lidocaine 1 patch DAILY TOP 01/08/25 12:14 01/08/25 13:05 1 PATCH Assessment/Plan Assessment/Plan 69-year-old female with a known history of hypertension, dyslipidemia, chronic back pain is here for elective surgery 1. Hypertension controlled 2. Hypertriglyceridemia 3. Acute on chronic back pain status post L3-4 five lumbar spine surgery -therapy evaluation and treatment, pain meds, discharge plan per orthopedic spine surgery. Plan discussed with: Patient Date of Service: Jan 08, 2025 Billing Provider: ALEXIS AMBRIZ MD Common Visit Codes: NOT BILLABLE ALEXIS AMBRIZ MD Jan 08, 2025 17:16
[2025-01-08] MEDS: ONDANSETRON HCL 4 MG/2 ML VIAL IV PRN (18:24)
[2025-01-09 01:00] VITALS: BP 145/80; PULSE 89; RESP 16; TEMP 98.5; O2SAT 93
[2025-01-09 05:00] VITALS: BP 128/82; PULSE 95; RESP 16; TEMP 98.9; O2SAT 98
[2025-01-09 08:00] VITALS: PULSE 84; PULSE 85; RESP 18; O2SAT 96
[2025-01-09 09:00] VITALS: BP 127/71; PULSE 92; RESP 18; TEMP 97.8; O2SAT 96
--- NOTE | 2025-01-09 10:21 | DVHPN2 ---
Progress Note - Surgical Date Seen: Jan 09, 2025 Post op day Post op day: 4 Subjective Patient reports: No new complaints, Feels better (Patient is requesting to be discharged, states that she is understanding she is going to have normal postoperative pain is to be expected. States that her preoperative symptoms have improved slightly.) Review of Systems: HEENT:Normal, CVS:Normal, RESPIRATORY:Normal, GI:Normal, :Normal, MSK:Normal, NEURO:Normal (experiencing expected hip and thigh achy feeling, pre op symptoms slightly improving) Objective Vital signs Vital Sign Date Time Temp Pulse Resp B/P (MAP) Pulse Ox O2 Delivery O2 Flow Rate FiO2 01/09/25 09:47 121/75 01/09/25 09:47 86 18 01/09/25 08:00 96 Nasal Cannula* 2 28 01/09/25 05:00 98.9 98.9 Total Intake and Output 01/08/25 01/08/25 01/09/25 15:00 23:00 07:00 Intake Total 200 ml 1050 ml 900 ml Output Total 50 ml 620 ml 830 ml Balance 150 ml 430 ml 70 ml Medications Current Medications Medications Dose Ordered Sig/Olesya Route Start Time Stop Time Status Last Admin Dose Admin Dextrose/Sodium Chloride 1,000 ml @ 100 mls/hr Q10H IV 01/05/25 12:00 01/08/25 21:26 100 MLS/HR Ondansetron HCl 4 mg Q4HP PRN IV 01/05/25 12:00 01/08/25 18:24 4 MG Acetaminophen 650 mg Q6HP PRN PO 01/05/25 12:00 Acetaminophen/ Hydrocodone Bitart 1 tab Q6HP PRN PO 01/05/25 12:00 01/09/25 04:34 1 TAB Morphine Sulfate 1 mg Q4HP PRN IV 01/05/25 12:00 01/09/25 09:47 1 MG Cyclobenzaprine HCl 10 mg TID PO 01/05/25 14:00 01/09/25 05:32 10 MG Docusate Sodium 100 mg BID PO 01/05/25 22:00 01/09/25 09:45 100 MG Nitroglycerin 0.4 mg Q5MINP PRN SL 01/05/25 12:00 Morphine Sulfate 2 mg Q30M PRN IV 01/05/25 12:00 Amlodipine Besylate 10 mg DAILY PO 01/06/25 10:00 01/09/25 09:47 10 MG Metoprolol Succinate 100 mg DAILY PO 01/06/25 10:00 01/09/25 09:46 100 MG Patient Own Medication 300 mg DAILY PO 01/06/25 10:00 UNV Losartan Potassium 100 mg DAILY PO 01/06/25 10:00 01/09/25 09:46 100 MG Lidocaine 1 patch DAILY TOP 01/08/25 12:14 01/09/25 09:45 1 PATCH Examination: GENERAL:Normal, HEENT:Normal, NECK:Normal, LUNGS:Normal, CVS:Normal, ABDOMEN:Normal, MSK:Normal, SKIN:Normal (HUANG in tact, drain #1 dc due to low output), NEURO:Normal (experiencing expected hip and thigh achy feeling, pre op symptoms slightly improving), :Normal Problem List/Assessment/Plan Problems: (1) Muscle spasm of back (2) Acute post-operative pain Assessment and Plan POD # 4 Events of the day encourage pt to work with physical therapy Drain output for 1 minimal In the past 24 hours discontinued today Huang dressing is intact functioning well Patient is experiencing expected postoperative pain she is also experiencing tension to her right hip and thigh. This can be a normal finding postoperative. Patient is progressing as expected, encouraging patient to sit up while awake, encourage pt to use her incentive spirometer while awake. Cleared discharge -Disposition: -home -Discharge RX: No discharge prescriptions needed, patient has had the prescription sent during her preop office visit, patient has already picked up her prescriptions -Follow up appointment: with Dr Varela on scheduled postoperative date [phone] [id number] [facility] [address] [place] [id number] -Pain: - IV pain meds post op day 1, with PO supplementation, goal is to progress weaning off IV medications and control pain with PO only. morphine- for breakthrough pain (PAIN 7-10) - P.O. analgesics:Tylenol 650MG (PAIN 1-3) [place] 10/325 mg (PAIN 4-6) - Muscle relaxers scheduled administration. This is a beneficial medications for the incisional pain as it is mostly related to muscle spasms. Flexeril 10 mg TID - Cepacol throat lozenges as needed for sore throat -DVT PPX: -Hold all chemical DVT/ blood thinners for 14 days postoperatively -use mechanical DVT PPX such as SCD's, ambulation -Activity: -continue PT treatment and monitor patients progression -Sit at side of bed for meals -Goal: Ambulate independently and safely (may use assistive devices if needed) -Medical Therapy goals: -Afebrile- Patient may develop a expected post operative fever by day 2-3, this may not be accompanied with a elevation in WBC. if fever develops: Acetaminophen for fever. Albuterol nebulizer Tx every 12 hours for 24 hours to facilitate adequate lung expansion and prevent development of atelectasis. -Euglycemic: bloods sugars under 130mmol/L for optimal healing -Normotensive: Avoid events of hypertension. This helps to keep post operative healing intact and avoids destabilization of beneficial hemostatic coagulation. -Lumbar: -If patient is comfortable encouraged the patient to lay on their side to facilitate wound healing -Dressings Take care not to disrupt the HUANG dressing seal. If there is a break in the seal it can be trouble shot with a Tegaderm dressing. -Dressing to Hemovac drain site may be changed PRN by nursing. -Bowel management: -Colace 100mg bid -Diet: -Patient tolerating diet however her intake is subpar -Incentive Spirometer: -10 x hour while awake, RN please educate and observe repeat demonstration, have IS at bedside POD #1 -X-rays: - none indicated at this time -Consults: -Physical Therapy evaluation, treatment recommendations, and discharge recommendations Call with questions Benedicto Narvaez ACNP- Orthopaedic Spine Surgery nurse practitioner For Dr Stefany Varela Patient was examined, chart reviewed, labs evaluated, and diagnostic studies and findings analyzed. Case was discussed with Dr. Cosme Varela who formulated the plan of care. This medical document was created using an electronic medical record system with [employer] dictation system. Although this document has been carefully reviewed, there might still be some phonetic and typographical errors. These areas are purely typographical due to imperfections of the software programs, and do not reflect any compromise in the patient's medical care. My Orders My Orders Orders - TRISTEN NARVAEZ NP Procedure Category Date Status Time Communication Order ORDERS 01/08/25 Transmitted 12:09 Sequential KASH 01/08/25 In Process Compression Device 12:09 Lidocaine 5% Topical PHA 8/1/25 In Process Patch (Lidoderm 5% 12:14 Plan discussed with Plan discussed with: Patient, Other (Nalini RN extension [phone]) Visit Coding Surgery Date of Service if different f: Jan 05, 2025 Billing Provider: TRISTEN NARVAEZ NP Surgery Visit Codes: NOT BILLABLE TRISTEN NARVAEZ NP Jan 09, 2025 10:20
[2025-01-09] MEDS ORDERED: DOCU-265 PO (10:42)
--- NOTE | 2025-01-09 10:50 | DVHDS2 ---
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
--- NOTE | 2025-01-09 10:50 | DVHDS2 ---
Discharge Summary Date of Admission Jan 05, 2025 at 11:49 Date of Discharge: Jan 09, 2025 Admitting Diagnosis Lumbar Degenerative Disk Disease and Lumbar Spinal Stenosis causing Incapacitating back pain, radiculopathy and progressive neurologic deficit Wounds: Posterior lumbar surgical site wound edges well approximated with subcuticular running suture, covered with connor dressing which has a intact seal in a functioning power source, two right lateral drain sites minimal leaking, new dressing applied prior to discharge Labs/Diagnostic Data: Preoperative imaging was reviewed prior to surgery from outside imaging source Brief Hx & Hospital Course: The patient arrived for a elective spine surgery with Dr. VARELA. Surgery went as planned with no complications. After a short stay in the PACU patient was admitted to the hospital for postoperative care and pain management over the course of 4 postoperative days the patient was able to tolerate a diet, ambulate independently using a walker, the pain has been managed with oral analgesics. The surgical site is well-approximated with sutures, some residual drainage continues from drain insertion sites after removal, however it is manageable with daily wound care and dressing changes. Some improvement to preoperative symptoms of extremities, strength and motion. There is new post operative pain that is localized to the surgical site. Connor dressing is in place and functioning The patient will follow-up with Dr. Varela for wound check and suture check or staple removal. Patient has a postoperative appointment already scheduled with Dr. Gregory Patient has had her postoperative medications picked up already, they were sent on her preoperative office visit Operations or Procedures Procedure: Lumbar 5 laminectomy with Lumbar 5 foraminotomies and facetectomies to decompress central canal and Lumbar 5 nerve roots Lumbar 4 laminectomy with Lumbar 4 foraminotomies and facetectomies to decompress central canal and Lumbar 4 nerve roots Lumbar 3 laminectomy with Lumbar 3 foraminotomies and facetectomies to decompress central canal and Lumbar 4 nerve roots Lumbar 3 to 5 posterior spinal inter transverse fusion Lumbar 4 to 5 posterior spinal interbody fusion with PEEK cage Lumbar 3 to 5 posterior spinal instrumentation with pedicle screws Local Bone Autograft For Fusion Condition at Discharge: Good Final Diagnosis/Problems List Lumbar Degenerative Disk Disease and Lumbar Spinal Stenosis causing Incapacitating back pain, radiculopathy and progressive neurologic deficit Discharge Disposition: Home with Health Services Discharge Instruct/Medications Diet: See Comment Diet comment: May resume a regular diet please try and avoid high sugar foods, highly processed foods. Please increase her protein intake for healing Activity: Light activity Activity comment: Limit bending lifting twisting. Patient is encouraged to mobilize and walk frequently. Please use your incentive spirometer when you get home 10 times an hour to prevent any lung congestion or pneumonia. Follow Up/Referral: Please keep your postoperative appointment with Dr. Varela in two weeks Medications: Medications were sent and picked up already per patient. New Medications: Docusate Sodium (Docusate Sodium) 100 Mg Cap 100 MG PO BID for 30 Days, #60 CAP Continued Medications: Amlodipine Besylate (Norvasc Tablet) 5 Mg Tb 10 MG PO DAILY, TAB Aspirin (Aspirin Low Dose) 81 Mg Chw 1 TAB PO DAILY, #90 TAB 3 Refills Cholecalciferol (Vitamin D3) 2,000 Unit Tab 1 TAB PO DAILY, #90 TAB 3 Refills Clonidine Hydrochloride (Clonidine Hcl) 0.2 Mg Tab 0.3 MG TOP DAILY, TAB Cur[place]uma [place]a (Turmeric) Extra (Turmeric) 500 Mg Tab 1000 MG PO DAILY, TAB Docusate Sodium (Colace) 100 Mg Cap 1 CAP PO BID, #60 CAP Fenofibrate (Fenofibrate) 145 Mg Tab 1 TAB PO DAILY, #90 TAB 3 Refills Losartan Potassium (Cozaar) 100 Mg Tab 300 MG PO DAILY, TAB Magnesium Citrate (mg Suppleme (Magnesium Citrate) 125 Mg Cap 250 MG PO DAILY, CAP Metoprolol Succinate (Metoprolol Succinate Er) 50 Mg Tab 2 TAB PO DAILY, #90 TAB 3 Refills Oxycodone W/ Acetaminophen (Percocet 5/325MG) 1 Tab Tb 1 TAB PO PRN, #90 TAB Tizanidine Hydrochloride (Zanaflex) 4 Mg Cap 1 CAP PO TID, #90 CAP Scheduled Amlodipine Besylate (Norvasc Tablet), 10 MG PO DAILY, (Reported) Aspirin (Aspirin Low Dose), 1 TAB PO DAILY, (Reported) Cholecalciferol (Vitamin D3), 1 TAB PO DAILY, (Reported) Clonidine Hydrochloride (Clonidine Hcl), 0.3 MG TOP DAILY, (Reported) Cur[place]uma [place] (Turmeric) Extra (Turmeric), 1,000 MG PO DAILY, (Reported) Docusate Sodium (Colace), 1 CAP PO BID, (Reported) Docusate Sodium (Docusate Sodium), 100 MG PO BID Fenofibrate (Fenofibrate), 1 TAB PO DAILY, (Reported) Losartan Potassium (Cozaar), 300 MG PO DAILY, (Reported) Magnesium Citrate (mg Suppleme (Magnesium Citrate), 250 MG PO DAILY, (Reported) Metoprolol Succinate (Metoprolol Succinate Er), 2 TAB PO DAILY, (Reported) Oxycodone W/ Acetaminophen (Percocet 5/325MG), 1 TAB PO PRN, (Reported) Tizanidine Hydrochloride (Zanaflex), 1 CAP PO TID, (Reported) Discharge Statement: "Patient was advised to return to the ER or call 911 if any headaches, dizziness, shortness of breath, chest pain, abdominal pain, bleeding, fevers, or worsening of medical condition. Patient was counseled about treatment plan, medications, possible side effects, patientverbalized understanding. All questions were answered to the best of my ability. 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
[2025-01-09 12:58] VITALS: BP 158/86; PULSE 96; RESP 18; TEMP 96.7; O2SAT 98
== END 2025-01-09 14:05 | disposition home health service (06) | DRG 458 ==
LOC: SUR 06:11 → OVERFLOW 11:49 → TELE-CENTR 13:52
PROVIDERS: ADMIT Internal Medicine; ATTEND Internal Medicine
PROC: 4A11X4G Monitoring of Peripheral Nervous Electrical Activity, Intraoperative, External Approach (ICD-10-PCS; 2025-01-05)
PROC: 00NY0ZZ Release Lumbar Spinal Cord, Open Approach (ICD-10-PCS; 2025-01-05)
PROC: 01NB0ZZ Release Lumbar Nerve, Open Approach (ICD-10-PCS; 2025-01-05)
PROC: 0SG10AJ Fusion of 2 or more Lumbar Vertebral Joints with Interbody Fusion Device, Posterior Approach, Anterior Column, Open Approach (ICD-10-PCS; principal; 2025-01-05 07:56)
DX: M48.062 Spinal stenosis, lumbar region with neurogenic claudication (principal); M41.56 Other secondary scoliosis, lumbar region; I10 Essential (primary) hypertension; T40.695A Adverse effect of other narcotics, initial encounter; E78.1 Pure hyperglyceridemia; M51.16 Intervertebral disc disorders with radiculopathy, lumbar region; K59.9 Functional intestinal disorder, unspecified; G89.29 Other chronic pain; G89.18 Other acute postprocedural pain; Z88.5 Allergy status to narcotic agent; Y92.89 Other specified places as the place of occurrence of the external cause
CPT/HCPCS: 72100; 76000; 86850; 86900; 86901; 97110; 97116; 97163; 97530; A4344; G0378; J0131; J1956; J2250; J2405; J2704; J7042